=== PATIENT | male | born 1935 | race Two or more races ===

== ENCOUNTER 2019-08-05 22:17 | Emergency (ER) | payer OTHER ==
[~2019-08-05] VITALS: Ht 162.6 cm; Wt 58.1 kg
[~2019-08-05 22:17] MED LIST: KENALOG-1010 MG/ML; TRAMADOL HCL50 MG
[2019-08-06] MEDS ORDERED: INTESTINEX680 M1 PO ×2 (03:48→03:49)
[2019-08-06] MEDS ORDERED: PEPCID40 MG PO (03:49)
[2019-08-06] MEDS ORDERED: ZOFRAN4 MG PO (03:49)
== END 2019-08-06 04:00 | disposition home or self-care (01) ==
LOC: ER 22:17
DX: K52.89 Other specified noninfective gastroenteritis and colitis (principal)

== ENCOUNTER 2019-09-02 10:00 | Outpatient (CLI) | payer OTHER ==
[~2019-09-02 10:00] MED LIST changes: +INTESTINEX680 M1 PO; +PEPCID40 MG PO; +ZOFRAN4 MG PO
== END 2019-09-02 10:54 | disposition home or self-care (01) ==
LOC: TOM 10:00
DX: R41.2 Retrograde amnesia (principal)

== ENCOUNTER 2020-02-08 09:53 | Outpatient (CLI) | payer OTHER | END 2020-02-08 09:58 | disposition home or self-care (01) | LOC: NUCLEAR 09:53 | PROVIDERS: ATTEND Internal Medicine Cardiovascular Disease | DX: I10 Essential (primary) hypertension (principal) ==

== ENCOUNTER 2023-10-30 07:12 | Outpatient (CLI) | payer OTHER | END 2023-10-30 07:32 | disposition home or self-care (01) | LOC: TOM 07:12 | PROVIDERS: ATTEND Internal Medicine Gastroenterology | DX: R19.5 Other fecal abnormalities (principal) ==

== ENCOUNTER 2023-11-19 10:14 | Outpatient (CLI) | payer OTHER | END 2023-11-19 10:16 | disposition home or self-care (01) | LOC: NUCLEAR 10:14 | PROVIDERS: ATTEND Internal Medicine | DX: I25.10 Atherosclerotic heart disease of native coronary artery without angina pectoris (principal); I36.0 Nonrheumatic tricuspid (valve) stenosis ==